=== PATIENT | male | born 1960 | race Caucasian/White ===

== ENCOUNTER → 2017-11-14 | Outpatient (CLI) | payer BC ==
--- NOTE | 2017-11-14 14:31 | XR ---
2 view abdomen HISTORY: Abdomen pain, R 10.9 2 views of the abdomen on 3 images Lung bases are clear. There is no evident pneumoperitoneum or bowel obstruction. No pathologic calcif ication. Bone mineralization is maintained. Air-fluid levels on the upright exam without bowel disten tion. IMPRESSION: Nonobstructive bowel gas pattern. Follow-up as indicated. Consider ileus, enteritis.
== END | disposition home or self-care (01) ==
LOC: RADXRMAIN 13:24
PROVIDERS: ATTEND Surgery
DX: R10.9 Unspecified abdominal pain (principal)
CPT/HCPCS: 74019

== ENCOUNTER → 2020-02-18 | Outpatient (CLI) | payer BC ==
--- NOTE | 2020-02-18 10:38 | FL ---
EXAMINATION TYPE: FL UGI air DATE OF EXAM: 02/18/2020 COMPARISON: NONE HISTORY: Gastroesophageal reflux TECHNIQUE: A double contrast UGI study is performed. FINDINGS: Gas Prover image of the abdomen shows no gross abnormality. The esophagus shows normal motility and emptying into the stomach. There is a sliding hiatal hernia. Gastroesophageal reflux is noted to the upper thoracic esophagus. The stomach shows normal distensibility, peristalsis, and mucosal folds. No evidence of any mass or ulcer disease. No significant gastroesophageal reflux was seen during real time performance of this study. The duodenal bulb, sweep, and proximal small bowel loops are unremarkable. 1 minute 8 seconds fluoroscopy time, 12 images obtained IMPRESSION: Sliding hiatal hernia, marked gastroesophageal reflux
== END | disposition home or self-care (01) ==
LOC: RADUSWWP 08:46
PROVIDERS: ATTEND Family Medicine
DX: K21.9 Gastro-esophageal reflux disease without esophagitis (principal); K44.9 Diaphragmatic hernia without obstruction or gangrene
CPT/HCPCS: 74246

== ENCOUNTER → 2020-12-12 | Outpatient (CLI) | payer BC ==
--- NOTE | 2020-12-12 18:45 | CT ---
EXAMINATION TYPE: CT brain wo con DATE OF EXAM: 12/12/2020 HISTORY: memory loss, dizziness. CT DLP: 1036 mGycm. Automated Exposure Control for Dose Reduction was Utilized. TECHNIQUE: CT scan of the head is performed without contrast. COMPARISON: None FINDINGS: There is no acute intracranial hemorrhage, midline shift, or mass effect identified. Mild patchy whit e matter hypodensities likely sequela of chronic microvascular ischemic change. Minimal generalized v olume loss, concordant with patient age. The ventricles, sulci, and cisterns are normal in size and configuration. No abnormal extra-axial fluid collection. No depressed calvarial fracture. The globes are grossly sym metric. Visualized sinuses and mastoid air cells are clear. IMPRESSION: 1. No acute intracranial hemorrhage, midline shift, or mass effect. 2. Mild patchy white matter hypodensities likely sequela of chronic microvascular ischemic change.
== END | disposition home or self-care (01) ==
LOC: RADCTMAIN 16:52
PROVIDERS: ATTEND Family Medicine
DX: R90.82 White matter disease, unspecified (principal)
CPT/HCPCS: 70450

== ENCOUNTER → 2020-12-16 | Outpatient (CLI) | payer BC ==
--- NOTE | 2020-12-17 10:24 | MR ---
EXAMINATION TYPE: MR angio head wo con DATE OF EXAM: 12/16/2020 COMPARISON: None HISTORY: Episode of memory loss, vertebro-basilar artery syndrome. CONTRAST: None TECHNIQUE: Multiplanar multiecho imaging on a 3.0 Quynh magnet is performed through the [place] of [place] lis. 3-D [id number]-[id number] imaging is performed. Source images are reviewed on the computer in the axi al plane. Reconstructed images rotating on the computer are reviewed. FINDINGS: The internal carotid arteries bifurcate normally into A1 and M1 segments. The A2 segments are normal. Middle cerebral artery branches are normal. Ophthalmic arteries as visualized appear un remarkable Anterior communicating artery is patent. The small right posterior communicating artery is patent on source images. The small left posterior communicating artery is patent on source images. Vertebrobasilar arteries within the [id number] are normal. Posterior cerebral vasculature is norm al. Vertebral arteries appear normal. Posterior superior cerebellar arteries are unremarkable. Poste rior cerebral vasculature is normal. Basilar artery is within normal limits. No obstruction or signif icant stenosis is evident. No suspicious aneurysm or aneurysmal dilatation is evident. No obstructions are identified. No sign ificant flow-limiting stenosis is evident. IMPRESSIONS: 1. NORMAL MRA TETLIN OF YI.
== END | disposition home or self-care (01) ==
LOC: RADMRIMAIN 15:31
PROVIDERS: ATTEND Family Medicine
DX: G45.0 Vertebro-basilar artery syndrome (principal)
CPT/HCPCS: 70544